=== PATIENT | male | born 1995 | race Caucasian/White ===

== ENCOUNTER 2023-10-28 11:50 | Emergency (ER) | payer OTHER ==
[~2023-10-28] VITALS: Ht 188 cm; Wt 98.6 kg
[2023-10-28 13:48] LABS: BASO # 0.1 10^3/uL (0.0-0.2); BASO % 0.9 % (0.0-1.0); EOS # 0.5 10^3/uL (0.0-0.5); EOS % 6.2 % (0.0-3.0); HEMATOCRIT 44.6 % (42.0-52.0); HEMOGLOBIN 15.1 g/dl (13.5-17.5); LYMPH # 1.7 10^3/uL (1.5-5.0); LYMPH % 21.4 % (24.0-44.0); MEAN CORPUSCULAR HEMOGLOBIN 31.2 pg (27.0-33.0); MEAN CORPUSCULAR HGB CONC 33.9 g/dl (32.0-36.5); MEAN CORPUSCULAR VOLUME 92.1 fl (80.0-96.0); MONO # 0.7 10^3/uL (0.0-0.8); MONO % 9.2 % (2.0-8.0); NEUTROPHILS # 4.9 10^3/uL (1.5-8.5); NEUTROPHILS % 61.5 % (36.0-66.0); PLATELET COUNT, AUTOMATED 254 10^3/uL (150-450); RED BLOOD COUNT 4.84 10^6/uL (4.30-6.10)
[2023-10-28] MEDS ORDERED: REGL10TA6 PO (16:42)
[2023-10-28] MEDS ORDERED: DOXY-323 PO (16:42)
[2023-10-28 17:08] VITALS: BP 137/75; TEMP 97.8; O2SAT 97
== END 2023-10-28 17:09 | disposition home or self-care (01) ==
LOC: M ED 11:50
DX: R51.9 Headache, unspecified (principal); Z88.0 Allergy status to penicillin; Z88.2 Allergy status to sulfonamides; Z79.2 Long term (current) use of antibiotics; Z79.899 Other long term (current) drug therapy

== ENCOUNTER 2025-05-19 13:18 | Emergency (ER) | payer OTHER ==
[~2025-05-19] VITALS: Ht 188 cm; Wt 100.5 kg
[~2025-05-19 13:18] MED LIST: DOXY-441 PO; REGL10TA6 PO
[2025-05-19] MEDS ORDERED: HOME MED LIST COMPLETE! XX SCH (15:40)
[2025-05-19 15:43] LABS: KETONE, URINE AUTO RFX NEGATIVE (NEGATIVE); LEUKOCYTE ESTERASE UR AUTO RFX NEGATIVE (NEGATIVE); MUCUS, URINE RFX SMALL (NEGATIVE); NITRITE, URINE AUTO RFX NEGATIVE (NEGATIVE); RBC, URINE AUTO RFX 1 /HPF (0-3); SQUAM EPITHELIAL CELL UR AURFX 0 /HPF (0-6); WBC, URINE AUTO RFX 1 /HPF (0-3)
[2025-05-19] MEDS ORDERED: METH-1165 PO (18:02)
[2025-05-19] MEDS ORDERED: MEDR4PAK PO (18:02)
[2025-05-19 18:10] VITALS: BP 124/67; TEMP 98.1; O2SAT 98
== END 2025-05-19 18:21 | disposition home or self-care (01) ==
LOC: M ED 15:38
DX: M54.50 Low back pain, unspecified (principal); M25.552 Pain in left hip; Z79.899 Other long term (current) drug therapy; Z88.2 Allergy status to sulfonamides; Z88.0 Allergy status to penicillin